=== PATIENT | female | born 1965 | race Hispanic/Latino ===

== ENCOUNTER 2021-06-23 14:32 | Outpatient (CLI) | payer BC | END 2021-06-23 14:33 | disposition home or self-care (01) | LOC: CSHMAMMO 14:32 | PROVIDERS: ATTEND Family Medicine | DX: Z12.31 Encounter for screening mammogram for malignant neoplasm of breast (principal); Z78.0 Asymptomatic menopausal state | CPT/HCPCS: 77063; 77067; 77080 ==

== ENCOUNTER 2023-04-19 10:43 | Outpatient (CLI) | payer BC | END 2023-04-19 10:44 | disposition home or self-care (01) | LOC: CSHCT 10:43 | PROVIDERS: ATTEND Psychiatry & Neurology Neurology | DX: G43.711 Chronic migraine without aura, intractable, with status migrainosus (principal) | CPT/HCPCS: 70450 ==

== ENCOUNTER 2023-08-11 12:57 | Outpatient (CLI) | payer BC | END 2023-08-11 12:58 | disposition home or self-care (01) | LOC: CSHCT 12:57 | PROVIDERS: ATTEND Surgery | DX: M47.26 Other spondylosis with radiculopathy, lumbar region (principal); Z98.890 Other specified postprocedural states; M51.16 Intervertebral disc disorders with radiculopathy, lumbar region | CPT/HCPCS: 72131 ==

== ENCOUNTER 2024-04-10 14:55 | Outpatient (CLI) | payer BC | END 2024-04-10 14:56 | disposition home or self-care (01) | LOC: CSHMRI 14:55 | PROVIDERS: ATTEND Physician Assistant | DX: S83.241S Other tear of medial meniscus, current injury, right knee, sequela (principal) ==

== ENCOUNTER 2024-07-12 10:01 | Outpatient (CLI) | payer BC | END 2024-07-12 10:02 | disposition home or self-care (01) | LOC: CSHRAD 10:01 | PROVIDERS: ATTEND Student in an Organized Health Care Education/Training Program | DX: M54.16 Radiculopathy, lumbar region (principal); Z98.890 Other specified postprocedural states | CPT/HCPCS: 72100 ==